=== PATIENT | female | born 2000 | race Caucasian/White ===

== ENCOUNTER 2018-01-11 22:41 | Emergency (ER) | payer BC ==
--- NOTE | 2018-01-11 22:48 | EDPHY ---
H & P Stated Complaint: R Knee injury from soccer, Time Seen by Provider: 01/11/18 22:47 HPI/ROS: HPI CHIEF COMPLAINT: Right knee pain HISTORY OF PRESENT ILLNESS: Patient is a 17-year-old female otherwise healthy, presents emergency room with right knee pain. She was playing soccer. She fell directly on her right knee. She has pain over patella. Denies any lateral medial joint line pain. She is able to bear weight. [facility] emergency room by private vehicle. Currently complains of 6/10 pain. No numbness or tingling. No other injuries. Past Medical History: No significant medical history Past Surgical History: Oral surgery Social History: Denies daily use drugs alcohol tobacco. [employer] student. Family History: Noncontributory ROS REVIEW OF SYSTEMS: A comprehensive 10 point review of systems is otherwise negative aside from elements mentioned in the history of present illness. Exam Constitutional appears well nontoxic no acute distress, triage nursing summary reviewed, vital signs reviewed, awake/alert. Eyes normal conjunctivae and sclera, EOMI, PERRLA. HENT normal inspection, atraumatic, moist mucus membranes, no epistaxis, neck supple/ no meningismus, no raccoon eyes. Respiratory clear to auscultation bilaterally, normal breath sounds, no respiratory distress, no wheezing. Cardiovascular rate normal, regular rhythm, no murmur, no edema, distal pulses normal. Gastrointestinal soft, non-tender, no rebound, no guarding, normal bowel sounds, no distension, no pulsatile mass. Genitourinary no CVA tenderness. Musculoskeletal right lower extremity: Mild swelling and ecchymosis over the patella. Full range of motion of the knee joint. No laxity. Negative anterior -posterior drawer sign. Neurovascularly distally intact good distal pulse, good cap refill. No signs of compartment syndrome. Normal patella alignment on exam. Soft tissue swelling and ecchymosis over the patella. No medial lateral joint line pain. no midline vertebral tenderness, full range of motion , no calf swelling, no tenderness of extremities, no meningismus, good pulses, neurovascularly intact. Skin pink, warm, & dry, no rash, skin atraumatic. Neurologic awake, alert and oriented x 3, AAOx3, moves all 4 extremities equally, motor intact, sensory intact, CN II-XII intact, normal cerebellar, normal vision, normal speech. Psychiatric normal mood/affect. Heme/Lymph/Immune no lymphadenopathy. Differential Diagnosis: Includes but is not limited to in a particular order knee contusion, soft tissue injury, patella fracture, tendon injury, ligamentous injury, meniscal injury, bony abnormality Medical Decision Making: Plan for this patient ice pack, ibuprofen 800 mg, x- ray right knee with sunrise view. And re-evaluate. Re-evaluation: X-ray there knee reviewed. Negative for acute fracture malalignment. Patient placed knee immobilizer. Recommend ice, elevation, rest, anti- inflammatory pain medicine. Discussed return precautions with the patient. Additionally she understands to follow up with Orthopedics if she continues to have worsening pain. Return precautions discussed. Final diagnosis knee sprain. Contusion. Source: Patient - Personal History LMP (Females 10-55): 8-14 Days Ago Current Tetanus Diphtheria and Acellular Pertussis (TDAP): Yes - Medical/Surgical History Hx Asthma: No Hx Chronic Respiratory Disease: No Hx Diabetes: No Hx Cardiac Disease: No Hx Renal Disease: No Hx Cirrhosis: No Hx Alcoholism: No Hx HIV/AIDS: No Hx Splenectomy or Spleen Trauma: No - Social History Smoking Status: Never smoked Constitutional: Initial Vital Signs Temperature (C) 36.4 C 01/11/18 22:42 Heart Rate 85 01/11/18 22:42 Respiratory Rate 20 01/11/18 22:42 Blood Pressure 117/76 01/11/18 22:42 O2 Sat (%) 97 01/11/18 22:42 O2 Delivery Mode Room Air Allergies/Adverse Reactions: No Known Allergies Allergy (Unverified 01/11/18 22:46) Home Medications: Medication Instructions Recorded Ibuprofen [Motrin (*)] 800 mg PO Q6-8PRN #10 tab 01/11/18 Medical Decision Making - Diagnostics Imaging Results: Imaging Impressions Knee X-Ray 01/11/18 22:49 Impression: Negative for fracture. - Data Points Medications Given: Discontinued Medications Ibuprofen (Motrin) 800 mg PO EDNOW ONE Stop: 01/11/18 22:56 Last Admin: 01/11/18 23:02 Dose: 800 mg Departure - Departure Disposition: Home, Routine, Self-Care Clinical Impression: Knee sprain Qualifiers: Encounter type: initial encounter Involved ligament of knee: other ligament Laterality: right Qualified Code(s): S83.8X1A - Sprain of other specified parts of right knee, initial encounter Condition: Good Instructions: Knee Sprain (ED) Additional Instructions: 1. Ice your knee 2. Elevate your knee. 3. Take ibuprofen for pain control. 4. Knee immobilizer for comfort. 5. If you continue to have pain or worsening pain follow up with Orthopedics. Referrals: Haider Sifuentes MD [Medical Doctor] - As per Instructions Prescriptions: Ibuprofen [Motrin (*)] 800 mg PO Q6-8PRN #10 tab
[2018-01-11 22:55] VITALS: BP 116/81
[2018-01-11] MEDS ORDERED: IBUPROFEN 800 MG TAB PO ONE (22:55)
== END 2018-01-11 23:39 | disposition home or self-care (01) ==
DX: S83.8X1A Sprain of other specified parts of right knee, initial encounter (principal); W19.XXXA Unspecified fall, initial encounter; Y99.8 Other external cause status; Y93.66 Activity, soccer
CPT/HCPCS: L1830

== ENCOUNTER 2018-11-17 18:30 | Emergency (ER) | payer BC ==
--- NOTE | 2018-11-17 19:51 | EDPHY ---
H & P Stated Complaint: fell hit head tuesday vomited x 1 after today with fisher/feels out of it Time Seen by Provider: 11/17/18 19:22 HPI/ROS: CHIEF COMPLAINT: Head injury, difficulty concentrating HISTORY OF PRESENT ILLNESS: 18-year-old female presents with a head injury and difficulty concentrating. 2 nights ago, she fell backwards and struck her head on a carpeted floor. She felt fine that evening. However the next day, she had a moderate headache, associated with difficulty concentrating. Today the headache is mild, but she continues to have difficulty concentrating and light sensitivity. Concerned about concussion. No other injuries. No neck pain. REVIEW OF SYSTEMS: complete 10 point ROS reviewed and is negative except for the noted elements in the HPI - Personal History LMP (Females 10-55): Over 28 Days Ago Current Tetanus Diphtheria and Acellular Pertussis (TDAP): Yes - Medical/Surgical History Hx Asthma: No Hx Chronic Respiratory Disease: No Hx Diabetes: No Hx Cardiac Disease: No Hx Renal Disease: No Hx Cirrhosis: No Hx Alcoholism: No Hx HIV/AIDS: No Hx Splenectomy or Spleen Trauma: No Other PMH: denies - Social History Smoking Status: Never smoked - Physical Exam Exam: General Appearance: Alert, pleasant Eyes: Pupils equal and round, no conjunctival pallor ENT, Mouth: Mucous membranes moist Neck: Normal inspection, no midline tenderness, range of motion without pain Respiratory: Lungs are clear to auscultation Cardiovascular: Regular rate and rhythm Gastrointestinal: Abdomen is soft and nontender Neurological: Alert, oriented x3, cranial nerves II through XII intact, motor 5 /5, sensory intact to light touch, normal gait. Skin: Warm and dry Extremities: Normal inspection Psychiatric: Mood and affect normal Constitutional: Initial Vital Signs Temperature (C) 36.8 C 11/17/18 18:44 Heart Rate 71 11/17/18 18:44 Respiratory Rate 17 11/17/18 18:44 Blood Pressure 138/98 H 11/17/18 18:44 O2 Sat (%) 98 11/17/18 18:44 O2 Delivery Mode Room Air Allergies/Adverse Reactions: No Known Allergies Allergy (Verified 11/17/18 18:44) Home Medications: Medication Instructions Recorded Ibuprofen [Motrin (*)] 800 mg PO Q6-8PRN #10 tab 01/11/18 Medical Decision Making ED Course/Re-evaluation: This pt presents 2 days after a CHI with a mild FISHER and normal neuro exam, c/w concussion. Neuroimaging not indicated. CHI precautions given. Departure - Departure Disposition: Home, Routine, Self-Care Clinical Impression: Concussion Qualifiers: Encounter type: initial encounter Loss of consciousness presence/duration: without LOC Qualified Code(s): S06.0X0A - Concussion without loss of consciousness, initial encounter Condition: Good Instructions: Concussion (ED) Additional Instructions: 1. Cognitive rest while symptomatic. Limit screen time (phone, TV, computer) until symptoms resolve. 2. Limit physical activities that could lead to head injury until symptoms have completely resolved. Wear a helmet when skiing and biking. 3. Use Tylenol and ibuprofen as directed on the packaging as needed for pain for the next few days. 4. Follow up with your primary care provider and/or head injury specialist if you have persisting symptoms for more than 10 days. 5. Return to the ED for severe headache, weakness or numbness on one side of your body, or other worsening of condition. Referrals: Carter Tello MD [Medical Doctor] - As per Instructions Stand Alone Forms: School Excuse
[2018-11-17 20:11] VITALS: BP 132/88
== END 2018-11-17 20:11 | disposition home or self-care (01) ==
DX: S06.0X0A Concussion without loss of consciousness, initial encounter (principal); W19.XXXA Unspecified fall, initial encounter; R40.2412 Glasgow coma scale score 13-15, at arrival to emergency department